=== PATIENT | male | born 1955 | race Caucasian/White ===

== ENCOUNTER → 2021-01-22 | Outpatient (CLI) | payer OTHER | LOC: KOH-I 12:59 | DX: F17.210 Nicotine dependence, cigarettes, uncomplicated (principal); R91.8 Other nonspecific abnormal finding of lung field | CPT/HCPCS: 71271 ==

== ENCOUNTER → 2021-07-24 | Outpatient (CLI) | payer OTHER | LOC: HEART 5 10:58 | DX: J44.9 Chronic obstructive pulmonary disease, unspecified (principal) | CPT/HCPCS: 94060; 94729 ==

== ENCOUNTER 2021-10-12 15:13 | Inpatient (IN) | payer OTHER ==
[~2021-10-12] VITALS: Ht 180.3 cm; Wt 55.8 kg
[2021-10-12 15:47] LABS: HEMOGLOBIN 11.1 gm/dl (14.0-17.5); RED BLOOD COUNT 3.61 M/UL (4.20-5.50); WHITE BLOOD COUNT 23.2 K/UL (4.5-11.0)
[2021-10-12 16:17] LABS: BUN/CREATININE RATIO 17 (0-10)
--- NOTE | 2021-10-13 06:12 | NUR ---
PT'S BP WAS 86/50 WITH A MAP OF 59 AFTER A 500 ML BOLUS OF NORMAL SALINE. DR. HAND ORDERED ANOTHER 500 ML BOLUS. [employer] [facility] [employer] WAS DOWN AT THE TIME AND ORDER COULD NOT BE ENTERED. BOLUS WAS STARTED AT 0150 ON 10/13/21.
[2021-10-13 06:13] LABS: HEMOGLOBIN 10.4 gm/dl (14.0-17.5); RED BLOOD COUNT 3.4 M/UL (4.20-5.50); WHITE BLOOD COUNT 20.4 K/UL (4.5-11.0)
[2021-10-13 06:49] LABS: BUN/CREATININE RATIO 33 (0-10)
[2021-10-13] MEDS ORDERED: TRAZODONE HCL50 MG PO (10:52)
[2021-10-13] MEDS ORDERED: SYMBICORT 160-1 INHA INH (10:52)
[2021-10-13] MEDS ORDERED: PROAIR HFA8.5 GM INH (10:52)
[2021-10-13] MEDS ORDERED: SPIRIVA RESPIMAT4 GM INH (10:53)
[2021-10-13] MEDS ORDERED: IPRAT-ALBUT 0.5-3 ML INH (11:03)
[2021-10-14 04:00] LABS: HEMOGLOBIN 9.5 gm/dl (14.0-17.5); RED BLOOD COUNT 3.12 M/UL (4.20-5.50)
[2021-10-14 04:20] LABS: BUN/CREATININE RATIO 40 (0-10)
[2021-10-15 06:42] LABS: HEMOGLOBIN 10.1 gm/dl (14.0-17.5); RED BLOOD COUNT 3.28 M/UL (4.20-5.50); WHITE BLOOD COUNT 21.9 K/UL (4.5-11.0)
[2021-10-15 07:16] LABS: BUN/CREATININE RATIO 24 (0-10)
[2021-10-16 04:59] LABS: RED BLOOD COUNT 3.27 M/UL (4.20-5.50); WHITE BLOOD COUNT 26.5 K/UL (4.5-11.0)
[2021-10-16 09:21] LABS: BUN/CREATININE RATIO 22 (0-10)
--- NOTE | 2021-10-16 16:01 | NUR ---
REPORT CALLED TO [facility]. ALL QUESTIONS ASKED AND ANSWERED.
[2021-10-18 04:07] LABS: BUN/CREATININE RATIO 28 (0-10)
[2021-10-18 04:13] LABS: HEMOGLOBIN 9.4 gm/dl (14.0-17.5); RED BLOOD COUNT 3.1 M/UL (4.20-5.50)
[2021-10-18 05:36] LABS: WHITE BLOOD COUNT 17.7 K/UL (4.5-11.0)
[2021-10-20 07:32] LABS: HEMOGLOBIN 10.4 gm/dl (14.0-17.5); WHITE BLOOD COUNT 15.3 K/UL (4.5-11.0)
[2021-10-20 07:39] LABS: RED BLOOD COUNT 3.53 M/UL (4.20-5.50)
[2021-10-20 07:59] LABS: BUN/CREATININE RATIO 23 (0-10)
[2021-10-21 02:59] LABS: HEMOGLOBIN 10.6 gm/dl (14.0-17.5); RED BLOOD COUNT 3.5 M/UL (4.20-5.50); WHITE BLOOD COUNT 15.4 K/UL (4.5-11.0)
[2021-10-21 03:40] LABS: BUN/CREATININE RATIO 51 (0-10)
[2021-10-22 06:19] LABS: RED BLOOD COUNT 3.66 M/UL (4.20-5.50); WHITE BLOOD COUNT 16.6 K/UL (4.5-11.0)
[2021-10-22 06:47] LABS: BUN/CREATININE RATIO 48 (0-10)
--- NOTE | 2021-10-22 15:03 | NUR ---
PT'S OYGEN NEEDS HAVE BEEN BETTER TODAY. I HAVE BEEN ABLE TO TURN DOWN SLOWLY TO 5 LITERS NC AT THIS TIME AND HIS OXYGEN IS 94% AT 4 LITERS
[2021-10-22 23:12] LABS: IMMUNOGLOBULIN G, QN, SERUM 1897 mg/dL (603-1613)
[2021-10-23 05:32] LABS: HEMOGLOBIN 10.6 gm/dl (14.0-17.5); RED BLOOD COUNT 3.51 M/UL (4.20-5.50); WHITE BLOOD COUNT 15.3 K/UL (4.5-11.0)
[2021-10-23 06:50] LABS: BUN/CREATININE RATIO 54 (0-10)
[2021-10-24 06:14] LABS: HEMOGLOBIN 10.6 gm/dl (14.0-17.5); RED BLOOD COUNT 3.67 M/UL (4.20-5.50); WHITE BLOOD COUNT 13.5 K/UL (4.5-11.0)
[2021-10-24 06:32] LABS: BUN/CREATININE RATIO 52 (0-10)
[2021-10-24] MEDS ORDERED: PROVENTIL HFA6.7 GM INH (10:59)
[2021-10-24] MEDS ORDERED: LEVOFLOXACIN750 MG PO (11:01)
[2021-10-24 16:11] LABS: ORGANISM ID Not indicated. (.); SPECIMEN SOURCE Urine (.); STREPTOCOCCUS PNEUMONIAE AG Negative (Negative)
== END 2021-10-24 13:26 | disposition home or self-care (01) | DRG 871 ==
LOC: ER1 15:13 → CDU 18:39 → PROG CARE 18:39 → MED SURG 4 18:39 → PROG CARE 22:30 → MED SURG 4 10-16 16:18
PROVIDERS: Emergency Medicine; Internal Medicine; Internal Medicine Infectious Disease; Nurse Practitioner Family; ADMIT Internal Medicine
PROC: 3E03329 Introduction of Other Anti-infective into Peripheral Vein, Percutaneous Approach (ICD-10-PCS; 2021-10-12)
PROC: 5A0945A Assistance with Respiratory Ventilation, 24-96 Consecutive Hours, High Flow/Velocity Cannula (ICD-10-PCS; 2021-10-13)
PROC: B24BZZZ Ultrasonography of Heart with Aorta (ICD-10-PCS; principal; 2021-10-21)
PROC: 5A0945A Assistance with Respiratory Ventilation, 24-96 Consecutive Hours, High Flow/Velocity Cannula (ICD-10-PCS; 2021-10-21)
DX: A41.9 Sepsis, unspecified organism (principal); J18.9 Pneumonia, unspecified organism; J96.01 Acute respiratory failure with hypoxia; Z20.822 Contact with and (suspected) exposure to COVID-19; J96.21 Acute and chronic respiratory failure with hypoxia; J47.0 Bronchiectasis with acute lower respiratory infection; E87.4 Mixed disorder of acid-base balance; E44.0 Moderate protein-calorie malnutrition; Z68.1 Body mass index [BMI] 19.9 or less, adult; R65.20 Severe sepsis without septic shock; D72.829 Elevated white blood cell count, unspecified; F17.210 Nicotine dependence, cigarettes, uncomplicated; K06.9 Disorder of gingiva and edentulous alveolar ridge, unspecified; K21.9 Gastro-esophageal reflux disease without esophagitis; G47.00 Insomnia, unspecified; J43.9 Emphysema, unspecified; D75.839 Thrombocytosis, unspecified; E88.09 Other disorders of plasma-protein metabolism, not elsewhere classified; Z82.49 Family history of ischemic heart disease and other diseases of the circulatory system; Z81.1 Family history of alcohol abuse and dependence; Z80.9 Family history of malignant neoplasm, unspecified; Z82.3 Family history of stroke
CPT/HCPCS: ECHO; 0240U; 36415; 36600; 71045; 71046; 74150; 80048; 80053; 80202; 82550; 82553; 82784; 82787; 82803; 83880; 84484; 85025; 85027; 85379; 87070; 87081; 87205; 87278; 87899; 93005; 93306; 93970; 94640; 94664; 94760; 96374; 96375; 97161; 97166; 99285; J0456; J0692; J0696; J1650; J2185; J2405; J2920; J2930; J3370; J7030; J7040; J7070; Q9967

== ENCOUNTER → 2021-11-21 | Outpatient (CLI) | payer OTHER ==
[~2021-11-21] MED LIST: IPRAT-ALBUT 0.5-3 ML INH; LEVOFLOXACIN750 MG PO; PROAIR HFA8.5 GM INH; PROVENTIL HFA6.7 GM INH; SPIRIVA RESPIMAT4 GM INH; SYMBICORT 160-1 INHA INH; TRAZODONE HCL50 MG PO
== END ==
LOC: EXRD 10:26
DX: J18.9 Pneumonia, unspecified organism (principal); R91.8 Other nonspecific abnormal finding of lung field
CPT/HCPCS: 71046

== ENCOUNTER → 2021-11-25 | Outpatient (CLI) | payer OTHER | LOC: EXRD 10:20 | DX: J18.9 Pneumonia, unspecified organism (principal) | CPT/HCPCS: 71046 ==

== ENCOUNTER → 2021-12-12 | Outpatient (CLI) | payer OTHER | LOC: EXRD 12:41 | DX: J18.9 Pneumonia, unspecified organism (principal) | CPT/HCPCS: 71046 ==